=== PATIENT | male | born 1950 | race African-American/Black ===

== ENCOUNTER 2021-09-23 07:27 | Emergency (ER) | payer BC, MEDICAID ==
[~2021-09-23] VITALS: Ht 182.9 cm; Wt 96.0 kg
[2021-09-23 09:07] LABS: CLARITY URINE CLEAR (CLEAR); COLOR URINE YELLOW (YELLOW); KETONES URINE NEGATIVE (NEGATIVE); LEUKOCYTE ESTERASE URINE NEGATIVE (NEGATIVE); NITRITE URINE NEGATIVE (NEGATIVE); OCCULT BLOOD URINE NEGATIVE (NEGATIVE); PH URINE 5.5 (4.5-8.0); PROTEIN URINE TRACE (NEGATIVE); SPECIFIC GRAVITY URINE 1.014 (1.005-1.030)
[2021-09-23] MEDS ORDERED: T3 PO (09:58)
[2021-09-23] MEDS ORDERED: KETOROLAC 60MG/2ML VIAL IM ONE (10:00)
[2021-09-23 10:40] VITALS: BP 137/74
== END 2021-09-23 11:03 | disposition home or self-care (01) ==
LOC: ER 07:27
DX: N40.1 Benign prostatic hyperplasia with lower urinary tract symptoms (principal); R33.8 Other retention of urine
CPT/HCPCS: 81003; 87086; 96372; 99283; J1885

== ENCOUNTER 2023-05-30 09:22 | Emergency (ER) | payer BC, MEDICARE ==
[~2023-05-30] VITALS: Ht 177.8 cm; Wt 96.0 kg
[~2023-05-30 09:22] MED LIST: T3 PO
[2023-05-30 09:43] VITALS: O2SAT 97
[2023-05-30] MEDS ORDERED: BACITRACIN ZINC OINT UDPKT TOP ONE (10:15)
[2023-05-30 10:37] LABS: BASOPHILS % 0.6 % (0.0-2.0); EOSINOPHILS % 1.8 % (0.0-5.0); HEMATOCRIT. 40.2 % (42.0-52.0); HEMOGLOBIN. 13.4 g/dL (14.0-18.0); LYMPHOCYTES % 23.7 % (20.0-50.0); MEAN CORPUSCULAR HEMOGLOBIN 28.9 pg (28.0-32.0); MEAN CORPUSCULAR HGB CONC 33.2 g/dL (31.0-37.0); MEAN CORPUSCULAR VOLUME 86.8 fL (80.0-94.0); MEAN PLATELET VOLUME 9.4 fl (7.4-10.4); MONOCYTES % 6.2 % (2.0-8.0); NEUTROPHILS % 67.7 % (40.0-76.0); PLATELET 156 x1000/uL (130-400); RED BLOOD CELL COUNT 4.63 mill/uL (4.7-6.1); RED CELL DISTRIBUTION WIDTH 14.2 % (11.6-14.6)
[2023-05-30 10:46] LABS: CHLORIDE 111 mEq/L (98-107); INDEX HEMOLYSI 1 (1-3); INDEX ICTERIC 1 (1-4); INDEX LIPEMIC 1 (1-3); POTASSIUM 3.8 mEq/L (3.5-5.1); SODIUM 138 mEq/L (136-145)
[2023-05-30 10:53] LABS: ALANINE AMINOTRANSFERASE 15 IU/L (13-61); ALBUMIN 3.5 g/dL (3.4-5.0); ASPARTATE AMINOTRANSFERASE 14 IU/L (15-37); BILIRUBIN TOTAL 0.8 mg/dL (0.1-1.0); CALCIUM 8.4 mg/dL (8.5-10.1); CARBON DIOXIDE 26 mEq/L (21-32); CREATININE 1.2 mg/dL (0.6-1.3); GLUCOSE 74 mg/dL (70-105); PROTEIN TOTAL 7.2 g/dL (6.0-8.3); UREA NITROGEN BLOOD 10 mg/dL (7-21)
[2023-05-30 12:03] VITALS: BP 170/104; PULSE 64; RESP 15; TEMP 98.6
== END 2023-05-30 12:24 | disposition home or self-care (01) ==
LOC: ER 09:22
DX: S00.81XA Abrasion of other part of head, initial encounter (principal); R42 Dizziness and giddiness; I10 Essential (primary) hypertension; W18.30XA Fall on same level, unspecified, initial encounter; Y93.89 Activity, other specified; Y92.89 Other specified places as the place of occurrence of the external cause; Y99.8 Other external cause status
CPT/HCPCS: 36415; 80053; 85025; 93005; 99285

== ENCOUNTER 2024-09-17 15:44 | Emergency (ER) | payer BC ==
[~2024-09-17] VITALS: Ht 180.3 cm; Wt 98.0 kg
[2024-09-17 15:46] VITALS: BP 169/102; RESP 16; TEMP 98.7; O2SAT 98
[2024-09-17 15:55] VITALS: PULSE 69; O2SAT 100
== END 2024-09-17 16:50 | disposition left against medical advice (07) ==
LOC: ER 15:44
DX: R30.9 Painful micturition, unspecified (principal); Z53.21 Procedure and treatment not carried out due to patient leaving prior to being seen by health care provider